=== PATIENT | male | born 2000 | race Hispanic/Latino ===

== ENCOUNTER → 2018-05-25 | Outpatient (CLI) | payer OTHER ==
--- NOTE | 2018-05-25 12:51 | Diagnostic Imaging Report ---
Exam: Testicular ultrasound with doppler Clinical History: Right-sided testicular pain. Findings: Sonographic evaluation of the testicles. Both testes are normal in echogenicity and size without intratesticular mass. Normal bilateral Doppler flow. There are trace bilateral hydroceles. No evidence of varicocele. Both epididymides are normal in appearance. The right testes measures 4.4 x 2.1 x 3.2 cm and the left testes measures 4.2 x 2.1 x 3.2 cm. The right epididymis measures 1.1 x 0.8 x 0.9 cm on the left epididymis measures 1.1 x 0.9 x 0.8 cm. There are three punctate left-sided echogenic testicular foci and two punctate right-sided echogenic testicular foci. Impression: No sonographic evidence of testicular torsion or epididymitis. Incidental scattered bilateral testicular microcalcifications, not meeting criteria for microlithiasis. This is unlikely to be of clinical significance in a low risk patient. Trace bilateral hydroceles. Signed by: Dr. Zina Webber MD on 05/25/2018 12:48 PM
== END ==
LOC: US 11:55
PROVIDERS: ATTEND Family Medicine
DX: N50.811 Right testicular pain (principal); N43.3 Hydrocele, unspecified
CPT/HCPCS: 76870; 93976